=== PATIENT | male | born 1980 | race Caucasian/White ===

== ENCOUNTER 2017-10-21 23:02 | Emergency (ER) | payer SELFPAY ==
[~2017-10-21] VITALS: Ht 170.2 cm; Wt 55.2 kg
[2017-10-21 23:50] VITALS: BP 131/96
== END 2017-10-21 23:51 | disposition left against medical advice (07) ==
LOC: EDBD 23:02 → EME 23:02
DX: G40.409 Other generalized epilepsy and epileptic syndromes, not intractable, without status epilepticus (principal); I10 Essential (primary) hypertension; F43.10 Post-traumatic stress disorder, unspecified; F31.9 Bipolar disorder, unspecified; F17.200 Nicotine dependence, unspecified, uncomplicated
CPT/HCPCS: 80053; 85027; 99281; 99284